=== PATIENT | male | born 1960 | race Caucasian/White ===

== ENCOUNTER 2016-12-30 11:14 | Emergency (ER) | payer OTHER ==
[~2016-12-30] VITALS: Ht 180.3 cm; Wt 70.8 kg
[~2016-12-30 11:14] MED LIST: ACETAMINOPHEN650 M7 PO; ASPIRIN325 MG PO; IBUPROFEN600 MG PO; LAMISIL250 MG PO; LOPRESSOR50 MG PO; MAG-AL PLUS SUS30 ML PO; NOHOMEMEDS; OMEPRAZOLE40 M1 PO; VICODIN 5-3001 EACH PO
[2016-12-30 11:53] LABS: HEMATOCRIT 45.2 % (38.0-50.0); MCH 30.3 PG (29.0-34.0); MCV 86.6 FL (86-99); MEAN PLAT.VOLUME 11.1 uM^3 (9.0-12.4); PLATELET COUNT 211 K/uL (156-360); RBC DIS.WIDTH-CV 12.8 % (11.8-14.6); RED BLOOD COUNT 5.22 M/uL (4.00-5.50); WHITE BLOOD COUNT 10.7 K/uL (4.1-10.2)
[2016-12-30 12:01] LABS: CHLORIDE 104 mEq/L (99-109); POTASSIUM 4.5 mEq/L (3.7-5.4); SODIUM 137 mEq/L (136-147)
[2016-12-30 12:03] LABS: GLUCOSE 96 mg/dL (70-99)
[2016-12-30 12:05] LABS: ANION GAP 12 MEQ/L (2-14)
[2016-12-30 12:07] LABS: ALKALINE PHOSPHATASE 80 IU/L (3-129); GFR ESTIMATE (CALCULATED) 52 mL/min/
[2016-12-30 12:08] LABS: UREA NITROGEN (BUN) 25 mg/dL (9-23)
[2016-12-30 12:11] LABS: LIPASE 17 U/L (1.0-51.0)
[2016-12-30 14:18] LABS: ADD MIUA? YES; BILIRUBIN NEGATIVE; BLOOD MODERATE; COLOR AMBER ((YELLOW)); GLUCOSE (STRIP) NEGATIVE; KETONES 5; LEUKOCYTES NEGATIVE; NITRITE NEGATIVE; PROTEIN (STRIP) 100
[2016-12-30] MEDS ORDERED: ZOFRAN ODT4 MG PO (14:18)
[2016-12-30] MEDS ORDERED: BENTYL10 MG PO (14:18)
[2016-12-30 14:42] LABS: BACTERIA NONE SEEN /HPF; EPITHELIAL CELLS NONE SEEN /HPF; HYALINE CASTS 20-30 /LPF; MUCUS 4+ /LPF
[2016-12-30 15:03] LABS: C DIFF TOXIN NEGATIVE (NEGATIVE)
[2016-12-30 15:06] LABS: PROBE CHECK PASS; SPECIMEN PROCESSING CONTROL PASS
[2016-12-30 17:35] VITALS: BP 129/88
== END 2016-12-30 17:35 | disposition home or self-care (01) ==
LOC: EME 11:14
PROVIDERS: Nurse Practitioner Family
DX: E86.0 Dehydration (principal); R19.7 Diarrhea, unspecified; Z91.040 Latex allergy status; Z79.82 Long term (current) use of aspirin; I10 Essential (primary) hypertension; Z87.891 Personal history of nicotine dependence
CPT/HCPCS: 71020; 74177; 80053; 81003; 83690; 85027; 87493; 99281; 99285; J1885; J2270; J2405; J7030

== ENCOUNTER 2017-01-01 11:57 | Emergency (ER) | payer OTHER ==
[~2017-01-01] VITALS: Ht 180.3 cm; Wt 71.3 kg
[~2017-01-01 11:57] MED LIST changes: +BENTYL10 MG PO; +ZOFRAN ODT4 MG PO
[2017-01-01 12:50] LABS: MCHC 34.4 G/DL (30.0-36.0); MCV 87.2 FL (86-99); MEAN PLAT.VOLUME 10.8 uM^3 (9.0-12.4); PLATELET COUNT 257 K/uL (156-360); RBC DIS.WIDTH-CV 12.5 % (11.8-14.6); RBC DIS.WIDTH-SD 40.1 % (39-53); RED BLOOD COUNT 4.47 M/uL (4.00-5.50); WHITE BLOOD COUNT 10.2 K/uL (4.1-10.2)
[2017-01-01 12:57] LABS: CHLORIDE 108 mEq/L (99-109); POTASSIUM 4.2 mEq/L (3.7-5.4); SODIUM 138 mEq/L (136-147)
[2017-01-01 12:59] LABS: GLUCOSE 115 mg/dL (70-99)
[2017-01-01 13:01] LABS: ANION GAP 9 MEQ/L (2-14)
[2017-01-01 13:03] LABS: GFR ESTIMATE (CALCULATED) > 59 mL/min/
[2017-01-01 13:04] LABS: UREA NITROGEN (BUN) 17 mg/dL (9-23)
[2017-01-01 13:09] LABS: TROP-I INTERPRETATION NEGATIVE; TROPONIN-I 0.24 ng/mL (0.0-0.30)
[2017-01-01 14:30] VITALS: BP 127/82
[2017-01-01 15:10] LABS: TROP-I INTERPRETATION NEGATIVE; TROPONIN-I 0.25 ng/mL (0.0-0.30)
[2017-01-01 15:23] LABS: C DIFF TOXIN ND (NEGATIVE)
== END 2017-01-01 16:07 | disposition home or self-care (01) ==
LOC: EME 11:57
PROVIDERS: Emergency Medicine
DX: R07.89 Other chest pain (principal); J20.9 Acute bronchitis, unspecified; I10 Essential (primary) hypertension; Z87.891 Personal history of nicotine dependence; Z79.82 Long term (current) use of aspirin
CPT/HCPCS: 71020; 80048; 84484; 85027; 87493; 93005; 99281; 99285; J1885; J7030

== ENCOUNTER 2017-01-02 11:11 | Inpatient (IN) | payer OTHER ==
[~2017-01-02] VITALS: Ht 180.3 cm; Wt 71.3 kg
[2017-01-02 12:37] VITALS: BP 179/101
[2017-01-02 13:41] LABS: EOSINOPHIL (%) 0 % (0-5); HEMATOCRIT 36.9 % (38.0-50.0); IMMATURE GRANULOCYTE (%) 0.4 % (0.0-0.7); INSTRUMENT ABS NEUTROPHIL CT 8.9 K/uL; LYMPHOCYTE COUNT 0.6 K/uL (1.0-2.8); MCH 30.1 PG (29.0-34.0); MCHC 34.1 G/DL (30.0-36.0); MCV 88.3 FL (86-99); MEAN PLAT.VOLUME 10.6 uM^3 (9.0-12.4); MONOCYTE (%) 9.4 % (3-12); NEUTROPHIL (%) 84.4 % (45-76); NEUTROPHIL COUNT 8.9 K/uL (1.8-6.4); PLATELET COUNT 260 K/uL (156-360); RBC DIS.WIDTH-CV 12.6 % (11.8-14.6); RBC DIS.WIDTH-SD 41.3 % (39-53); RED BLOOD COUNT 4.18 M/uL (4.00-5.50); WHITE BLOOD COUNT 10.5 K/uL (4.1-10.2)
[2017-01-02 13:43] VITALS: BP 179/98
[2017-01-02 13:51] LABS: ALKALINE PHOSPHATASE 72 IU/L (3-129); AMYLASE 17 IU/L (1-118); ANION GAP 10 MEQ/L (2-14); CHLORIDE 106 MEQ/L (99-109); GFR ESTIMATE (CALCULATED) > 59 mL/min/; GLUCOSE 106 mg/dL (70-99); LIPASE 14 U/L (1.0-51.0); SAMPLE HEMOLYSIS CHECK 0; SAMPLE ICTERIC CHECK 0; SAMPLE LIPEMIA CHECK 0; SODIUM 137 MEQ/L (136-147); TOTAL BILIRUBIN 0.9 MG/DL (0.0-1.0); UREA NITROGEN (BUN) 17 mg/dL (9-23)
[2017-01-02 13:52] LABS: TROP-I INTERPRETATION NEGATIVE
[2017-01-02 15:53] VITALS: BP 171/97
[2017-01-02 16:02] LABS: ADD MIUA? YES; BILIRUBIN NEGATIVE; BLOOD MODERATE; COLOR YELLOW ((YELLOW)); GLUCOSE (STRIP) NEGATIVE; KETONES 20; LEUKOCYTES NEGATIVE; NITRITE NEGATIVE; PROTEIN (STRIP) 100; SPECIFIC GRAVITY 1.019 (1.000-1.030); UROBILINOGEN 0.2 MG/DL (0.2-1.0)
[2017-01-02 16:57] LABS: BACTERIA RARE /HPF; EPITHELIAL CELLS NONE SEEN /HPF; MUCUS 2+ /LPF; RED BLOOD CELLS 20-30 /HPF (0-5); UCUL ADDED? NO; WHITE BLOOD CELLS 0-5 /HPF (0-5)
[2017-01-02 19:08] LABS: TROP-I INTERPRETATION NEGATIVE; TROPONIN-I 0.25 ng/mL (0.0-0.30)
[2017-01-02 19:48] VITALS: BP 145/80
[2017-01-02 23:33] VITALS: BP 133/84
[2017-01-03 00:54] LABS: TROP-I INTERPRETATION NEGATIVE; TROPONIN-I 0.13 ng/mL (0.0-0.30)
[2017-01-03 03:26] VITALS: BP 121/73
[2017-01-03 07:06] VITALS: BP 132/75
[2017-01-03 11:35] VITALS: BP 101/56
[2017-01-03 19:37] VITALS: BP 123/79
[2017-01-04 00:23] VITALS: BP 123/71
[2017-01-04 03:42] VITALS: BP 131/74
[2017-01-04 07:00] VITALS: BP 141/77
[2017-01-04 11:10] VITALS: BP 153/78
[2017-01-04 15:30] VITALS: BP 160/90
[2017-01-04 20:33] VITALS: BP 155/98
[2017-01-04 21:32] LABS: INTERNAL CONTROL VALID? YES
[2017-01-04 21:36] LABS: INTERNAL CONTROL VALID? YES
[2017-01-04 22:01] LABS: C DIFF TOXIN NEGATIVE (NEGATIVE)
[2017-01-04 22:14] LABS: PROBE CHECK PASS; SPECIMEN PROCESSING CONTROL PASS
[2017-01-05] VITALS: BP 145/88
[2017-01-05 03:14] VITALS: BP 148/84
[2017-01-05 06:57] VITALS: BP 141/86
[2017-01-05 07:49] LABS: EOSINOPHIL (%) 1.1 % (0-5); EOSINOPHIL COUNT 0.1 K/uL (0-0.3); IMMATURE GRANULOCYTE (%) 0.4 % (0.0-0.7); INSTRUMENT ABS NEUTROPHIL CT 5.1 K/uL; LYMPHOCYTE COUNT 1.3 K/uL (1.0-2.8); MCH 29.6 PG (29.0-34.0); MCHC 33.7 G/DL (30.0-36.0); MCV 87.9 FL (86-99); MEAN PLAT.VOLUME 10.7 uM^3 (9.0-12.4); MONOCYTE (%) 11.5 % (3-12); MONOCYTE COUNT 0.8 K/uL (0-0.8); NEUTROPHIL COUNT 5.1 K/uL (1.8-6.4); PLATELET COUNT 315 K/uL (156-360); RBC DIS.WIDTH-CV 12.5 % (11.8-14.6); RBC DIS.WIDTH-SD 40.2 % (39-53); RED BLOOD COUNT 3.98 M/uL (4.00-5.50)
[2017-01-05 07:51] LABS: WHITE BLOOD COUNT 7.3 K/uL (4.1-10.2)
[2017-01-05 08:02] LABS: ANION GAP 10 MEQ/L (2-14); CHLORIDE 107 MEQ/L (99-109); GFR ESTIMATE (CALCULATED) > 59 mL/min/; GLUCOSE 98 mg/dL (70-99); POTASSIUM 4.3 MEQ/L (3.7-5.4); SAMPLE HEMOLYSIS CHECK 0; SAMPLE ICTERIC CHECK 0; SAMPLE LIPEMIA CHECK 0; SODIUM 142 MEQ/L (136-147); UREA NITROGEN (BUN) 15 mg/dL (9-23)
[2017-01-05 10:46] VITALS: BP 157/93
[2017-01-05 12:40] LABS: POC NON-PRINT COM 1 ND
[2017-01-05 15:45] VITALS: BP 155/95
[2017-01-05 19:40] VITALS: BP 157/96
[2017-01-05] MEDS ORDERED: LOPRESSOR50 MG PO (22:14)
[2017-01-05] MEDS ORDERED: ASPIRIN325 MG PO (22:14)
[2017-01-05] MEDS ORDERED: IMODIUM A-D2 M2 PO (22:16)
== END 2017-01-05 23:16 | disposition home or self-care (01) | DRG 315 ==
LOC: 2EAST 11:11 → 2EASTP 11:54 → 2EAST 01-03 19:51
PROVIDERS: Family Medicine Sports Medicine; Internal Medicine
DX: I31.9 Disease of pericardium, unspecified (principal); K50.90 Crohn's disease, unspecified, without complications; R07.89 Other chest pain; R19.7 Diarrhea, unspecified; K21.9 Gastro-esophageal reflux disease without esophagitis; M94.0 Chondrocostal junction syndrome [Tietze]; I10 Essential (primary) hypertension; B19.20 Unspecified viral hepatitis C without hepatic coma; M06.9 Rheumatoid arthritis, unspecified; R63.4 Abnormal weight loss; F41.1 Generalized anxiety disorder; F12.10 Cannabis abuse, uncomplicated; R55 Syncope and collapse; I25.10 Atherosclerotic heart disease of native coronary artery without angina pectoris; Z87.891 Personal history of nicotine dependence
CPT/HCPCS: 71010; 80048; 80053; 81003; 82150; 82272; 83630; 83690; 84484; 85025; 87040; 87493; 87506; 93005; 93306; 94799; J1650; J1885; J2270; J7120

== ENCOUNTER 2017-12-10 10:31 | Inpatient (IN) | payer OTHER ==
[~2017-12-10] VITALS: Ht 180.3 cm; Wt 77.4 kg
[~2017-12-10 10:31] MED LIST changes: +IMODIUM A-D2 M2 PO
[2017-12-10 11:38] LABS: HEMATOCRIT 43.1 % (38.0-50.0); MCH 30.2 PG (29.0-34.0); MCHC 34.8 G/DL (30.0-36.0); MCV 86.7 FL (86-99); PLATELET COUNT 208 K/uL (156-360); RBC DIS.WIDTH-CV 12.4 % (11.8-14.6); RBC DIS.WIDTH-SD 39.3 % (39-53); RED BLOOD COUNT 4.97 M/uL (4.00-5.50); WHITE BLOOD COUNT 7.2 K/uL (4.1-10.2)
[2017-12-10 11:45] LABS: CHLORIDE 108 mEq/L (99-109); POTASSIUM 4.4 mEq/L (3.7-5.4); SODIUM 140 mEq/L (136-147)
[2017-12-10 11:46] LABS: GLUCOSE 95 mg/dL (70-99)
[2017-12-10 11:50] LABS: CREATININE 1.2 mg/dL (0.6-1.3); GFR ESTIMATE (CALCULATED) > 59 mL/min/ (58.99-99999)
[2017-12-10 11:51] LABS: UREA NITROGEN (BUN) 16 mg/dL (9-23)
[2017-12-10] MEDS ORDERED: OMEPRAZOLE40 M1 PO (15:29)
[2017-12-10] MEDS ORDERED: LOPRESSOR50 MG PO (15:30)
[2017-12-10] MEDS ORDERED: CYCLOBENZAPRINE10 MG PO (15:32)
[2017-12-10] MEDS ORDERED: OXYCODONE HCL10 MG PO (15:33)
[2017-12-10] MEDS ORDERED: MAVYRET 100-401 EACH PO (15:34)
[2017-12-10 17:21] LABS: HDL CHOLESTEROL 26 MG/DL (Desirable>=40); LDL CHOLESTEROL 104 mg/dL (Desirable<100); NON-HDL CHOLESTEROL 135 mg/dL (Desirable<160); TOTAL CHOLESTEROL 161 mg/dL (Desirable<200); TRIGLYCERIDES 153 MG/DL (Normal: <150)
[2017-12-10 17:22] VITALS: BP 216/105
[2017-12-10 17:34] LABS: APPEARANCE CLEAR ((CLEAR)); BILIRUBIN NEGATIVE; BLOOD MODERATE; COLOR YELLOW ((YELLOW)); GLUCOSE (STRIP) NEGATIVE; KETONES NEGATIVE; LEUKOCYTES NEGATIVE; NITRITE NEGATIVE; PROTEIN (STRIP) 30; SPECIFIC GRAVITY 1.015 (1.000-1.030); UROBILINOGEN 0.2 MG/DL (0.2-1.0)
[2017-12-10 17:50] LABS: BACTERIA NONE SEEN /HPF; EPITHELIAL CELLS NONE SEEN /HPF; MUCUS TRACE /LPF; RED BLOOD CELLS 0-5 /HPF (0-5); UCUL ADDED? NO; WHITE BLOOD CELLS 0-5 /HPF (0-5)
[2017-12-10 18:22] LABS: THYROTROPIN (TSH) 1.4 MIU/L (0.4-5.5)
[2017-12-10 20:00] VITALS: BP 131/73
[2017-12-10 22:50] VITALS: BP 131/71
[2017-12-11 03:34] VITALS: BP 131/75
[2017-12-11 06:52] LABS: HEMATOCRIT 42.2 % (38.0-50.0); HEMOGLOBIN 14.3 G/DL (12.5-16.6); MCH 29.4 PG (29.0-34.0); MCHC 33.9 G/DL (30.0-36.0); MCV 86.8 FL (86-99); PLATELET COUNT 210 K/uL (156-360); RBC DIS.WIDTH-CV 12.4 % (11.8-14.6); RBC DIS.WIDTH-SD 39.5 % (39-53); RED BLOOD COUNT 4.86 M/uL (4.00-5.50)
[2017-12-11 07:14] LABS: CHLORIDE 108 MEQ/L (99-109); CREATININE 1.2 MG/DL (0.6-1.3); GFR ESTIMATE (CALCULATED) > 59 mL/min/ (58.99-99999); GLUCOSE 96 mg/dL (70-99); POTASSIUM 3.8 MEQ/L (3.7-5.4); SODIUM 141 MEQ/L (136-147); UREA NITROGEN (BUN) 17 mg/dL (9-23)
[2017-12-11 07:43] VITALS: BP 161/82
[2017-12-11 10:03] LABS: HEMOGLOBIN A1c (GLYCOHEMOGLOB) 5.4 % (Below 5.7)
[2017-12-11 13:33] VITALS: BP 132/84
[2017-12-11 15:37] VITALS: BP 162/98
[2017-12-11 20:10] VITALS: BP 142/91
[2017-12-12] VITALS (7 sets, daily range): BP systolic 134–173; BP diastolic 78–97
[2017-12-12 05:34] LABS: HEMATOCRIT 43.3 % (38.0-50.0); MCH 30.4 PG (29.0-34.0); MCHC 34.6 G/DL (30.0-36.0); MCV 87.7 FL (86-99); PLATELET COUNT 198 K/uL (156-360); RBC DIS.WIDTH-CV 12.8 % (11.8-14.6); RBC DIS.WIDTH-SD 40.8 % (39-53); RED BLOOD COUNT 4.94 M/uL (4.00-5.50); WHITE BLOOD COUNT 7.8 K/uL (4.1-10.2)
[2017-12-12 05:57] LABS: CHLORIDE 106 MEQ/L (99-109); CREATININE 1.5 MG/DL (0.6-1.3); GFR ESTIMATE (CALCULATED) 51 mL/min/ (58.99-99999); GLUCOSE 104 mg/dL (70-99); MAGNESIUM 1.9 mg/dl (1.3-2.7); SODIUM 142 MEQ/L (136-147); UREA NITROGEN (BUN) 18 mg/dL (9-23)
[2017-12-13] VITALS (9 sets, daily range): BP systolic 115–202; BP diastolic 69–100
[2017-12-14 00:21] VITALS: BP 136/84
[2017-12-14 06:43] LABS: BASOPHIL (%) 0.6 % (0-1); EOSINOPHIL COUNT 0.2 K/uL (0-0.3); HEMATOCRIT 44.7 % (38.0-50.0); HEMOGLOBIN 15.1 G/DL (12.5-16.6); IMMATURE GRANULOCYTE (%) 0.1 % (0.0-0.7); LYMPHOCYTE (%) 41.3 % (15-42); LYMPHOCYTE COUNT 2.8 K/uL (1.0-2.8); MCH 29.7 PG (29.0-34.0); MCHC 33.8 G/DL (30.0-36.0); MCV 87.8 FL (86-99); MONOCYTE (%) 10.7 % (3-12); MONOCYTE COUNT 0.7 K/uL (0-0.8); NEUTROPHIL (%) 44.3 % (45-76); PLATELET COUNT 200 K/uL (156-360); RBC DIS.WIDTH-CV 12.6 % (11.8-14.6); RBC DIS.WIDTH-SD 40.7 % (39-53); RED BLOOD COUNT 5.09 M/uL (4.00-5.50); WHITE BLOOD COUNT 6.8 K/uL (4.1-10.2)
[2017-12-14 07:10] LABS: CHLORIDE 104 MEQ/L (99-109); CREATININE 1.4 MG/DL (0.6-1.3); GFR ESTIMATE (CALCULATED) 56 mL/min/ (58.99-99999); GLUCOSE 108 mg/dL (70-99); POTASSIUM 4.4 MEQ/L (3.7-5.4); SODIUM 138 MEQ/L (136-147); UREA NITROGEN (BUN) 25 mg/dL (9-23)
[2017-12-14 09:21] VITALS: BP 167/97
[2017-12-14 11:53] VITALS: BP 152/97
[2017-12-14 15:48] VITALS: BP 128/76
[2017-12-14 18:53] LABS: HCV RNA (IU/mL) <15 IU/mL (())
[2017-12-14] MEDS ORDERED: CLOPIDOGREL75 MG PO (19:33)
[2017-12-14] MEDS ORDERED: ATORVASTATIN CA40 MG PO (19:33)
[2017-12-14] MEDS ORDERED: VALSARTAN160 MG PO (19:34)
[2017-12-14] MEDS ORDERED: LOPRESSOR50 MG PO (19:34)
[2017-12-14] MEDS ORDERED: ASPIR-LOW81 MG PO (19:34)
[2017-12-14] MEDS ORDERED: BUSPAR10 MG PO (19:35)
[2017-12-14] MEDS ORDERED: CLONAZEPAM0.5 MG PO (19:36)
[2017-12-14 19:37] VITALS: BP 163/81
[2017-12-17 19:51] LABS: HCV RNA (LOG IU/mL) <1.18 (())
== END 2017-12-14 20:45 | disposition home or self-care (01) | DRG 65 ==
LOC: EME 10:31 → EDOF 16:06 → 5WEST 16:06 → ENRESERV 16:07 → 5WEST 17:07 → ENRESERV 12-11 11:27 → CANRESERV 12-11 11:27 → 5WEST 12-12 07:58 → ENRESERV 12-13 20:01 → 5SOUTH 12-13 21:06
PROVIDERS: Family Medicine Sports Medicine; Internal Medicine; Internal Medicine Infectious Disease
DX: I63.8 Other cerebral infarction (principal); R20.2 Paresthesia of skin; M62.838 Other muscle spasm; I16.1 Hypertensive emergency; I10 Essential (primary) hypertension; R00.0 Tachycardia, unspecified; B19.20 Unspecified viral hepatitis C without hepatic coma; K21.9 Gastro-esophageal reflux disease without esophagitis; F41.1 Generalized anxiety disorder; M06.9 Rheumatoid arthritis, unspecified; M54.9 Dorsalgia, unspecified; Z86.73 Personal history of transient ischemic attack (TIA), and cerebral infarction without residual deficits; Z87.891 Personal history of nicotine dependence
CPT/HCPCS: 70450; 70544; 70549; 70551; 71046; 80048; 80061; 81003; 83036; 83605; 83735; 84443; 85025; 85027; 85610; 87040; 87522 90; 87641; 93005; 93306; 99281; 99285; G0378; J0360; J1200; S0028